=== PATIENT | female | born 1975 ===

== ENCOUNTER 2025-05-09 19:25 | Emergency (ER) | payer MEDICAID ==
[~2025-05-09] VITALS: Ht 162.6 cm; Wt 106.1 kg
[2025-05-09 19:28] VITALS: BP 179/130; PULSE 105; RESP 21; TEMP 99.6; O2SAT 94
--- NOTE | 2025-05-09 19:45 | ELECTROCARDIOGRAPH REPORT ---
[facility] Test Date: 2025-05-09 Test Time: 19:43:57 Pat Name: DULCE LEAL Department: [facility]- Patient ID: [facility]-[id number] Room: Gender: F [employer] Sales Consultant: : [id number] Requested By: IRIS JIMENEZ Order Number: [id number] Reading MD: Dr. CASSIDY Abreu Measurements Intervals [place] Rate: 101 P: 42 IN: 159 QRS: 6 QRSD: 104 T: 61 QT: 351 QTc: 455 Interpretive Statements Sinus tachycardia Probable left atrial enlargement Electronically Signed On 05-11-2025 18:09:[address] CASSIDY Abreu Please click the below link to view image of tracing.
[2025-05-09 19:57] LABS: MEAN PLATELET VOLUME 10.0 FL (7.4-10.4); RED CELL DISTRIBUTION WIDTH 14.4 % (11.5-14.5)
--- NOTE | 2025-05-09 20:06 | RADIOLOGY REPORT ---
CHEST RADIOGRAPH INDICATION: CP TECHNIQUE: Single frontal view of the chest was obtained COMPARISON: None FINDINGS: Lines and Tubes: None Lungs: No focal consolidation. Mild interstitial prominence. Pleura: No effusion. No pneumothorax. Cardiomediastinal contours: Mild cardiomegaly Bones: No acute osseous abnormality. IMPRESSION: Mild cardiomegaly with mild pulmonary vascular congestion.
[2025-05-09 20:20] LABS: CREATININE 0.91 MG/DL (0.40-0.90); PRO BRAIN NATRIURETIC PEPTIDE 942 PG/ML (0-125); TOTAL CARBON DIOXIDE 34.5 MMOL/L (24-32); eCRCL 62 ML/MIN; eGFR 65 ML/MIN
--- NOTE | 2025-05-09 21:20 | Physician Documentation ---
History of Present Illness ~ Chief Complaint: Shortness of Breath Stated Complaint: COLD/COUGH Time Seen by MD: 20:27 HPI Patient presents to the emergency room for evaluation of shortness of breath and cough. This has been progressive over the past week. She was placed on antibiotics by her doctor without improvement. She is also placed on an inhaler that has well as prednisone. No prior instances. She denies any chest pain. Positive nausea. Denies one-sided leg pain Medication Reconciliation Allergies: Coded Allergies: No Known Allergies (Unverified , 05/09/25) Review of Systems ROS All review of systems negative except as per HPI Physical Exam Vital Signs: Temperature: 99.6, Source: Oral, Heart Rate: 105, Respiratory Rate: 21, BP: 179/130, Pulse Oximetry: 94, Weight: 106.140 Oxygen Flow Rate: 0 Physical Exam General: Patient is awake, alert, oriented x4 in no acute distress Head: Normocephalic and atraumatic. Eyes: Conjunctival normal. EOMI. PERRL. ENT: Mucous membranes moist. Neck: Supple, trachea is midline. Chest: Clear to auscultation bilaterally without rales, rhonchi, or wheezes. There is no accessory muscle use or retractions. Cardiac: Tachycardic and regular without murmurs, gallops, or rubs. Extremities: Normal strength. Normal range of motion. No deformities or edema. No calf tenderness to palpation Progress Results/Orders Results/Orders Orders - LAKHWINDER STARKS MD Chest,Single View (05/09/25 19:50) Monitor (05/09/25 19:37) Saline Lock (05/09/25 19:37) Oxygen (05/09/25 19:37) Hs Troponin I W Calculations (05/09/25 21:37) Hs Troponin I W Calculations (05/09/25 22:37) Completed Orders - LAKHWINDER STARKS MD Chest,Single View (05/09/25 19:50) Cbc/Diff (05/09/25 19:37) BMP (05/09/25 19:37) PBNP (05/09/25 19:37) Electrocardiogram (05/09/25 19:37) Hs Troponin I W Calculations (05/09/25 19:37) Vital Signs 05/09/25 19:28 Temp 99.6 Pulse 105 Resp 21 B/P (MAP) 179/130 Pulse Ox 94 O2 Flow Rate 0 Laboratory Tests Test 05/09/25 19:48 05/09/25 21:39 White Blood Count 10.3 Red Blood Count 4.42 Hemoglobin 13.4 Hematocrit 40.4 Mean Corpuscular Volume 91.5 Mean Corpuscular Hemoglobin 30.4 Mean Corpuscular Hemoglobin Concent 33.2 Red Cell Distribution Width 14.4 Platelet Count 206 Mean Platelet Volume 10.0 Neutrophils (%) (Auto) 67.0 Lymphocytes (%) (Auto) 23.4 Monocytes (%) (Auto) 7.4 Eosinophils (%) (Auto) 1.7 Basophils (%) (Auto) 0.5 Neutrophils # (Auto) 6.9 Lymphocytes # (Auto) 2.4 Monocytes # (Auto) 0.8 Eosinophils # (Auto) 0.2 Basophils # (Auto) 0.0 CBC Comment Sodium Level 145 Potassium Level 3.5 Chloride Level 105 Carbon Dioxide Level 34.5 H Anion Gap 6 L Blood Urea Nitrogen 14 Creatinine 0.91 H Estimated GFR/1.73 m2 65 BUN/Creatinine Ratio 15.4 Glucose Level 100 Calcium Level 8.3 L Troponin I High Sensitivity 57 *H Pro-B-Type Natriuretic Peptide 942 H Albumin 3.3 L Chemistry Comments EKG/XRAY/CT/US/VASC/MRI EKG : Additional Comment EKG interpreted by myself shows time of 1942, rate 101, sinus tachycardia, normal axis, no ST changes Chest X-Ray : Additional Comments Exam: CHEST,SINGLE VIEW CHEST RADIOGRAPH INDICATION: CP TECHNIQUE: Single frontal view of the chest was obtained COMPARISON: None FINDINGS: Lines and Tubes: None Lungs: No focal consolidation. Mild interstitial prominence. Pleura: No effusion. No pneumothorax. Cardiomediastinal contours: Mild cardiomegaly Bones: No acute osseous abnormality. IMPRESSION: Mild cardiomegaly with mild pulmonary vascular congestion. Medical Decision Making Additional information obtaine: other Findings Patient presents to the emergency room with increasing shortness of breath. Differentials include but are not limited to pneumonia, CHF, pneumothorax, pulmonary embolism. Patient denies any chest pain however she does have elevated troponins. I strongly suspect new onset heart failure. Patient that has signing out against medical advice. Discussed with her the elevation of her troponins and that she could result in severe disability and . She acknowledges this and demonstrates capacity and we would still like to leave. Heart Score: 4 Differential Dx:Considerations: Include: anxiety, asthma, bronchitis, cardiogenic shock, CHF, COPD, dysrhythmia, hypertension, accelerated, hypertension, essential, hypertension, malignant, hyperventilation, hyponatremia, myocardial infarction, panic attack, pneumonia, pneumonitis, pneumothorax, PSVT, pulmonary embolism, respiratory distress, respiratory failure, sinusitis, upper resp. infection, other Departure Disposition: LEFT AGAINST MEDICAL ADVICE Impression: Primary Impression: NSTEMI (non-ST elevated myocardial infarction) Additional Impression: Shortness of breath Condition: Guarded Referrals: NO PRIMARY CARE PROVIDER (PCP) Signature Scribe Signature: No scribe Attestation: The note accurately reflects work and decisions made by me.Lakhwinder Starks MD 05/09/25 21:48 LAKHWINDER STARKS MD May 09, 2025 21:20
== END 2025-05-09 21:46 | disposition left against medical advice (07) ==
LOC: ER 19:26
DX: I21.4 Non-ST elevation (NSTEMI) myocardial infarction (principal); R06.02 Shortness of breath
CPT/HCPCS: 36415; 71045; 80048; 83880; 84484; 85025; 93005; 99285